=== PATIENT | male | born 1960 | race Caucasian/White ===

== ENCOUNTER 2022-11-23 17:10 | Emergency (ER) | payer BC, SELFPAY ==
[2022-11-23 17:11] VITALS: BP 127/90; PULSE 92; RESP 14; TEMP 36.1; O2SAT 93; BMI 30.2
--- NOTE | 2022-11-23 18:23 | EX.ED.DYSGE1 ---
HPI <KALIA Isabel - Last Filed: 11/23/22 21:05> History of Present Illness Chief Complaint: Abd Pain Narrative Narrative: Patient presenting today with a painful umbilical hernia that he has been unable to reduce since 2 PM this afternoon. He states that he has had this hernia for the past 20 years and has never seen a surgeon regarding it. He states at times it does slip out and he is able to reduce it on his own. He denies a PMH of any chronic health conditions but also states he has poor preventative care and does not have a PCP. He denies any nausea and vomiting. PFSH <KALIA Isabel - Last Filed: 11/23/22 21:05> [facility] Medical History (Updated 11/23/22 @ 21:05 by KALIA Isabel) ACL (anterior cruciate ligament) tear ACL injury tear Hernia Home Medications NK 11/23/22 [History Last Taken Unknown] Allergy/AdvReac Type Severity Reaction Status Date / Time No Known Allergies Allergy Verified 11/23/22 17:11 Social History Smoking Status: Current every day smoker tobacco type: cigars ROS <KALIA Isabel - Last Filed: 11/23/22 21:05> ROS ED Constitutional Constitutional ED: Denies chills, fever(s) or sweats Cardiovascular Cardiovascular: Denies chest pain or palpitations Respiratory/Chest Respiratory/Chest: Denies cough, dyspnea, tachypnea or wheezing Gastrointestinal Gastrointestinal: Reports abdominal pain; Denies constipation, diarrhea, nausea or vomiting Genitourinary Genitourinary ED: Denies dysuria, hematuria or urinary urgency Musculoskeletal Musculoskeletal: Denies arthralgias, back pain, myalgias or neck pain Integumentary Denies abscess, Abrasions or rash Neurologic Neurologic: Denies confusion, dizziness or paresthesias Psychiatric Psychiatric: Denies anxiety, depression, suicidal ideation or suicidal thoughts EXAM <KALIA Isabel - Last Filed: 11/23/22 21:05> Physical Exam Const Vital Signs: 11/23/22 17:11 Temperature 96.9 F L Temperature Source Temporal Pulse Rate 92 Respiratory Rate 14 Blood Pressure 127/90 H Blood Pressure Mean 102 Pulse Ox 93 Oxygen Delivery Method Room Air Positive well nourished, well developed and no apparent distress General Appearance ED: well developed HEENT Reports normocephalic and head/scalp atraumatic Mouth ED: Yes moist mucous membranes normal Eyes PERRL and EOMs intact bilaterally Neck full ROM and supple Chest Wall inspection of chest normal Resp normal respiratory effort and clear to auscultation bilaterally Cardio regular rate and regular rhythm GI GI Narrative: irreducible umbilical hernia. Back/Spine normal ROM and normal to inspection Extremity normal to inspection and full ROM Neuro oriented x3, CN's II-XII intact bilaterally, moves all extremities, no focal motor deficits and no sensory deficits noted Sensorium / Orientation: awake and alert Psych mental status grossly normal and thought process normal Skin no rashes or lesions noted and no wounds <Dr. Bg Nance MD - Last Filed: 11/24/22 00:23> Physical Exam Const Vital Signs: 11/23/22 17:11 Temperature 96.9 F L Temperature Source Temporal Pulse Rate 92 Respiratory Rate 14 Blood Pressure 127/90 H Blood Pressure Mean 102 Pulse Ox 93 Oxygen Delivery Method Room Air MDM <KALIA Isabel - Last Filed: 11/23/22 21:05> [facility] Narrative Medical decision making narrative: Patient presenting today due to a painful umbilical hernia that he is unable to reduce. He has had this for 20 years and has never seen a surgeon for this. Attending ED physician did attempt to reduce this but was unable. Patient was given pain control. Preop labs were obtained. Dr. Gonzalez assessed patient and was able to reduce the hernia. CT of the abdomen and this did show ?Umbilical hernia which contains mesenteric fat and no loops of bowel with a possible area of infarcted mesenteric fat. I spoke to Dr. Gonzalez again felt that as long as patient was not in pain and could tolerate p.o. fluids he could be discharged home. Patient is comfortable with this plan. patient will be discharged home in stable condition as he did tolerate the fluids. I have personally performed a face to face assessment of the patient and have reviewed the VISHNU Note. I performed a substantive portion of the visit including all aspects of the following. My domínguez findings include: History is remarkable for painful nonreducible umbilical hernia. Patient states he had a hernia for 20 years. He states normally is able to push it in. He is presently unable to push the hernia. He is in pain. Is been in pain since 1400. Patient denies vomiting. Exam is patient has an incarcerated umbilical hernia. Medical Decision Making we will obtain preoperative work-up. Spoke with Dr. Favian Gonzalez. He requested CT of abdomen pelvis with IV contrast. Other additions or changes: [None] Lab Data Attestation: I reviewed the patient's lab results. Labs: Laboratory Results - last 24 hr 11/23/22 11/23/22 11/23/22 19:19 19:19 19:19 WBC 11.2 H RBC 5.20 Hgb 15.7 Hct 44.9 MCV 86.3 MCH 30.2 MCHC 35.0 RDW Std Deviation 39.9 RDW Coeff of Mina 12.7 Plt Count 171 MPV 10.8 Immature Gran % (Auto) 0.400 Neut % (Auto) 84.3 H Lymph % (Auto) 9.5 L Stearns % (Auto) 5.1 Eos % (Auto) 0.3 Baso % (Auto) 0.4 Absolute Neuts (auto) 9.4 H Absolute Lymphs (auto) 1.06 Nucleated RBC % 0 Sodium 137 Potassium 3.6 Chloride 104 Carbon Dioxide 25.0 Anion Gap 8 BUN 14 Creatinine 0.82 Estim Creat Clear Calc 109.99 Est GFR (MDRD) Af Amer 123 Est GFR (MDRD) Non-Af 102 BUN/Creatinine Ratio 17.2 Glucose 116 H Calcium 9.4 Blood Type A POSITIVE Antibody Screen NEGATIVE Radiography Diagnostic Testing: Clinical Impression(s) from Imaging Studies Abdomen/Pelvis CT 11/23/22 18:30 IMPRESSION: 1. Mildly dilated fluid-filled loops of small bowel in the upper abdomen with normal caliber bowel distally which may represent a developing obstruction. Transition point is not well visualized. 2. Umbilical hernia which contains mesenteric fat and no loops of bowel. There is a peripherally calcified low-density lesion seen at the level of the rectus muscles within the hernia possibly representing a focus of infarcted mesenteric fat. No other acute abnormalities are identified. Electronically Signed: Power Rivas MD at 20:40 EDT , Chest X-Ray 11/23/22 20:14 IMPRESSION: No radiographic evidence of acute cardiopulmonary disease. Electronically Signed: Power Rivas MD at 20:43 EDT , Imaging also reviewed and interpreted by attending ED physician. EKG Initial EKG: Comments: 85 bpm, normal sinus rhythm, no ST elevation, reviewed and interpreted by attending ED physician <Dr. Bg Nance MD - Last Filed: 11/24/22 00:23> [facility] MDM Narrative Medical decision making narrative: Patient presenting today due to a painful umbilical hernia that he is unable to reduce. He has had this for 20 years and has never seen a surgeon for this. Attending ED physician did attempt to reduce this but was unable. Patient was given pain control. Preop labs were obtained. Dr. Gonzalez assessed patient and was able to reduce the hernia. CT of the abdomen and this did show ?Umbilical hernia which contains mesenteric fat and no loops of bowel with a possible area of infarcted mesenteric fat. I spoke to Dr. Gonzalez again felt that as long as patient was not in pain and could tolerate p.o. fluids he could be discharged home. Patient is comfortable with this plan. patient will be discharged home in stable condition as he did tolerate the fluids. I have personally performed a face to face assessment of the patient and have reviewed the VISHNU Note. I performed a substantive portion of the visit including all aspects of the following. My domínguez findings include: History is remarkable for painful nonreducible umbilical hernia. Patient states he had a hernia for 20 years. He states normally is able to push it in. He is presently unable to push the hernia. He is in pain. Is been in pain since 1400. Patient denies vomiting. Exam is patient has an incarcerated umbilical hernia. Medical Decision Making we will obtain preoperative work-up. Spoke with Dr. Favian Gonzalez. He requested CT of abdomen pelvis with IV contrast. Other additions or changes: The CT was reviewed with Dr. Favian Gonzalez. He requested for patient be reexamined and have p.o. challenge. On reexam his hernia is easily reducible. He has no pain. He did pass p.o. challenge. Patient was instructed to contact Dr. Gonzalez's office in the morning for outpatient surgery. Lab Data Lab results narrative: SigmonWhite count is slightly. The Bolick panel is unremarkable. Labs: Laboratory Results - last 24 hr 11/23/22 11/23/22 11/23/22 19:19 19:19 19:19 WBC 11.2 H RBC 5.20 Hgb 15.7 Hct 44.9 MCV 86.3 MCH 30.2 MCHC 35.0 RDW Std Deviation 39.9 RDW Coeff of Mina 12.7 Plt Count 171 MPV 10.8 Immature Gran % (Auto) 0.400 Neut % (Auto) 84.3 H Lymph % (Auto) 9.5 L Stearns % (Auto) 5.1 Eos % (Auto) 0.3 Baso % (Auto) 0.4 Absolute Neuts (auto) 9.4 H Absolute Lymphs (auto) 1.06 Nucleated RBC % 0 Sodium 137 Potassium 3.6 Chloride 104 Carbon Dioxide 25.0 Anion Gap 8 BUN 14 Creatinine 0.82 Estim Creat Clear Calc 109.99 Est GFR (MDRD) Af Amer 123 Est GFR (MDRD) Non-Af 102 BUN/Creatinine Ratio 17.2 Glucose 116 H Calcium 9.4 Blood Type A POSITIVE Antibody Screen NEGATIVE Radiography Chest X-Ray - ED: Read by ED Physician (Chest x-rays independently reviewed interpreted by me as negative. Cardiac silhouette size normal. Lung parenchyma normal. Perihilar region normal. Osseous structures are unremarkable.) Diagnostic Testing: Clinical Impression(s) from Imaging Studies Abdomen/Pelvis CT 11/23/22 18:30 IMPRESSION: 1. Mildly dilated fluid-filled loops of small bowel in the upper abdomen with normal caliber bowel distally which may represent a developing obstruction. Transition point is not well visualized. 2. Umbilical hernia which contains mesenteric fat and no loops of bowel. There is a peripherally calcified low-density lesion seen at the level of the rectus muscles within the hernia possibly representing a focus of infarcted mesenteric fat. No other acute abnormalities are identified. Electronically Signed: Power Rivas MD at 20:40 EDT , Chest X-Ray 11/23/22 20:14 IMPRESSION: No radiographic evidence of acute cardiopulmonary disease. Electronically Signed: Power Rivas MD at 20:43 EDT , Discharge Plan Triage Chief Complaint: Abd Pain ED Midlevel Provider: Jennifer Thompson ED Provider: Bg Nance Dx/Rx/DC Orders Clinical Impression: Hernia, umbilical Instructions: ED Hernia (Adult) Prescriptions: No Action NK Primary Care Provider: Care Physician,No Primary Referrals: Favian Gonzalez MD [Med Staff - Active Staff] - 3-5 Days Care Physician,No Primary [Primary Care Provider] - Activity Restrictions/Additional Instructions: Please follow-up with the general surgeon return for any worsening of symptoms such as abdominal pain, change in bowel pattern, vomiting, nausea Disposition Disposition: Home, Self Care Discharge Date/Time: 11/23/22 21:36
--- NOTE | 2022-11-23 18:27 | EKG12_ITS ---
Test Reason : DYSRHYTHMIA Blood Pressure : / mmHG Vent. Rate : 085 BPM Atrial Rate : 085 BPM P-R Int : 140 ms QRS Dur : 100 ms QT Int : 386 ms P-R-T Axes : -19 080 034 degrees QTc Int : 459 ms Normal sinus rhythm Normal ECG Confirmed by ROSA GALLAGHER, KILEY ([id number]), deputy editor in chief EVAN DEL REAL ([id number]) on 11/27/2022 10:53:51 AM Referred By: EMILIA Confirmed By:CARRIE LEE MD
--- NOTE | 2022-11-23 18:30 | CT_ITS ---
EXAM: CT ABDOMEN AND PELVIS WITH INTRAVENOUS CONTRAST CLINICAL INDICATION: Incarcerated umbilical hernia TECHNIQUE: Helically acquired images were obtained of the abdomen and pelvis with intravenous contrast. This CT exam was performed using one or more of the following dose reduction techniques: automated exposure control, adjustment of the mA and/or kV according to patient size, and/or use of iterative reconstruction technique. This report was created using [employer] report generation technology. CONTRAST: IV 100mL Isovue-300 COMPARISON: None. FINDINGS: LOWER THORAX: Unremarkable. Lung bases are clear. No cardiomegaly. No significant pericardial effusion. ABDOMEN: LIVER: Unremarkable. Homogeneous. No focal mass. GALLBLADDER AND BILE DUCTS: Unremarkable. No calcified gallstones. No gallbladder distention or wall edema. No intra- or extrahepatic biliary ductal dilation. PANCREAS: Unremarkable. No focal cystic or solid mass. SPLEEN: Unremarkable. Normal size without focal cystic or solid mass. ADRENALS: Unremarkable. No nodules. KIDNEYS AND URETERS: Unremarkable. Normal renal size and position. No hydronephrosis. STOMACH AND BOWEL: There are dilated fluid-filled loops of small bowel proximally with normal caliber bowel loops distally which may represent a developing bowel obstruction. No obvious transition point is identified. No focal inflammatory change. PELVIS: APPENDIX: No evidence of acute appendicitis. BLADDER: Unremarkable. REPRODUCTIVE: Unremarkable as visualized. No mass. ABDOMEN and PELVIS: INTRAPERITONEAL SPACE: Unremarkable. No ascites or other fluid collection. No free air. BONES/JOINTS: Unremarkable. No suspicious lytic or blastic abnormality. SOFT TISSUES: There is a fat-containing umbilical hernia. There is a previously calcified lesion at the level of the rectus abdominis muscles that measures 1.8 x 1.7 x 1.7 cm. This may represent an area of infarcted mesenteric fat. There are no bowel loops within the hernia. VASCULATURE: Unremarkable. Abdominal aorta is non-dilated. LYMPH NODES: Unremarkable. No enlarged lymph nodes. CT/Abdomen/Pelvis W IV Cont ONLY IMPRESSION: 1. Mildly dilated fluid-filled loops of small bowel in the upper abdomen with normal caliber bowel distally which may represent a developing obstruction. Transition point is not well visualized. 2. Umbilical hernia which contains mesenteric fat and no loops of bowel. There is a peripherally calcified low-density lesion seen at the level of the rectus muscles within the hernia possibly representing a focus of infarcted mesenteric fat. No other acute abnormalities are identified. Electronically Signed: Power D. Breckwoldt, MD at 20:40 EDT ,
[2022-11-23] MEDS: Morphine 4 MG/ML Syringe IV (18:46)
--- NOTE | 2022-11-23 19:19 | PCM.HP.STD ---
[facility] - General General Date of Service: 11/23/22 Chief Complaint: Incarcerated umbilical hernia HPI Narrative PATRIZIA GALLOWAY, is a 62 M, with no significant past medical history but a known umbilical hernia, who presents to [facility] with complaints of inability to reduce this hernia. He reports that the hernia protruded somewhere between the hours of 1400 and 1500 this afternoon as he lifted a gate off of a truck at work. He estimates his gait with some 50 pounds and had to be lifted overhead. He states he tried to reduce his hernia for over 30 minutes at home, but when it was larger and firmer than previous, he decided to seek evaluation. He confirms that he did have a bowel movement approximately 1600 this afternoon and has been passing gas. He notes some mild nausea but no vomiting. His /significant other, who accompanies him, reports that he was also slightly sweaty while awaiting evaluation in triage. Mr. Galloway states that he was first diagnosed with a hernia over 20 years ago, but has not received evaluation for treatment. He does admit that it has grown in size, but overall has remained minimally symptomatic. Reports several times previously that his hernia protruded after lifting?particularly?when he was always able to push things back in (he notes that occasionally this did require some effort). Apart from the above, Mr. Galloway recalls a history of significant weight loss of greater than 50 pounds over the last 1 year which he has achieved through intermittent fasting. He also relates a history of a MRSA infection of his left upper extremity that required drainage. [facility] Medical History (Updated 11/23/22 @ 19:[address] Favian Gonzalez MD) ACL (anterior cruciate ligament) tear ACL injury tear Hernia Home Medications NK 11/23/22 [History Last Taken Unknown] Allergy/AdvReac Type Severity Reaction Status Date / Time No Known Allergies Allergy Verified 11/23/22 17:11 Social History Smoking Status: Current every day smoker tobacco type: cigars Vital Signs Vital Signs Vital Signs: 11/23/22 17:11 Temperature 96.9 F L Temperature Source Temporal Pulse Rate 92 Respiratory Rate 14 Blood Pressure 127/90 H Blood Pressure Mean 102 Pulse Ox 93 Oxygen Delivery Method Room Air Weight Weight: 235 lb 10.786 oz Body Mass Index (BMI) 30.2 Physical Exam Const alert, oriented x3 and no apparent distress General Appearance: cooperative and well developed GI GI Narrative: Nondistended, normal habitus, no scars, visibly erythematous periumbilical region with bulging at the umbilicus. Nontender to palpation x4 quadrants. Incarcerated umbilical hernia, but contents are only mildly tender to palpation and are soft. With this tactile exam I proceeded to be primarily (if not solely) fat. Hernia is able to be reduced with gentle continuous traction. The fascial defect is estimated at approximately 3 cm in width. Assessment & Plan Assessment/Plan (1) Incarcerated umbilical hernia: PLAN: Is a 62-year-old male, with minimal past medical history, who presents with incarcerated umbilical hernia. Appeared to be incarcerated fat and the hernia contents remained soft and only mildly tender to palpation so I did attempt reduction and was successful. Fascial defect appears to be approximately 3 cm. Even during our subsequent history, I reexamined patient and found fat already starting to protrude through the defect. Therefore I have informed patient that he is high risk for recurrence. Recommending urgent repair, but patient wishes to avoid admission and repair tomorrow. Therefore, we are obtaining a CT scan to exclude any concerning intraperitoneal findings, but will otherwise plan to follow-up with patient as an outpatient. He will require MRSA PCR given his history. Above impression and plan discussed with ER physician. Charges/Coding Visit Charges Office Visits / Consults: [id number] ED Visit; Moderate Severity
[2022-11-23 19:40] LABS: Absolute Lymphocyte Count 1.06 X10^3/uL (0.83-4.51); Absolute Neutrophil Count 9.4 X10^3/uL (2.0-7.7); Basophil# 0.04 X10^3/uL; Basophil% 0.4 % (0-1); Eosinophil# 0.03 X10^3/uL; Eosinophils% 0.3 % (0-5); Hematocrit 44.9 % (40-54); Hemoglobin 15.7 g/dL (13.0-16.5); Lymphocyte # 1.06 X10^3/ul (0.83-4.51); Lymphocyte % 9.5 % (19-41); Mean Corpuscular Hgb 30.2 pg (27.0-32.0); Mean Corpuscular Volume 86.3 fL (80-94); Mean Platelet Vol. 10.8 fl (6.2-12.0); Monocyte# 0.57 X10^3/uL; Monocyte% 5.1 % (0-10); NRBC Flagged by Analyzer 0 % (0-5); Neutrophil # 9.43 X10^3/uL (2.7-7.7); Neutrophil % 84.3 % (47-70); Platelet Count 171 K/mm3 (150-450); RBC Distribution Width CV 12.7 % (11.6-14.6); RBC Distribution Width SD 39.9 fl (35.1-43.9); White Blood Count 11.2 K/mm3 (4.4-11.0)
[2022-11-23 19:55] LABS: Anion Gap 8 (5-15); BUN 14 mg/dL (7-18); BUN/Creat Ratio 17.2 RATIO (10-20); Calcium,Total 9.4 mg/dL (8.5-10.1); Chloride 104 mmol/L (98-107); Creatinine, Serum 0.82 mg/dL (0.70-1.30); EST Glomerular Filtration Rate 102 mL/min (>60); Est Glom Filt Rate - Afr Amer 123 mL/min (>60); Estimated Creatinine Clearance 109.99 ml/min; Glucose 116 mg/dL (74-106); Potassium 3.6 mmol/L (3.5-5.1); Sodium Level 137 mmol/L (136-145)
--- NOTE | 2022-11-23 20:14 | RAD_ITS ---
EXAM: XR CHEST, 1 VIEW CLINICAL INDICATION: pre-op TECHNIQUE: Frontal view of the chest. This report was created using [employer] report generation technology. COMPARISON: None. FINDINGS: LUNGS AND PLEURAL SPACES: Unremarkable. No consolidation or edema. No pneumothorax. No effusion. HEART: Unremarkable. Cardiac silhouette not enlarged. MEDIASTINUM: Central airways and mediastinal contour are unremarkable. BONES/JOINTS: Unremarkable. SOFT TISSUES: Unremarkable. RAD/Chest 1 View (Portable) IMPRESSION: No radiographic evidence of acute cardiopulmonary disease. Electronically Signed: Power Rivas MD at 20:43 EDT ,
== END 2022-11-23 21:36 | disposition home or self-care (01) ==
PROVIDERS: Physician Assistant; Emergency Provider Emergency Medicine; Visit Provider Emergency Medicine
DX: K42.0 Umbilical hernia with obstruction, without gangrene (principal); F17.290 Nicotine dependence, other tobacco product, uncomplicated
CPT/HCPCS: 71045; 74177; 80048; 85025; 86850; 86900; 86901; 93005; 99283; J7030; Q9967; A4216

== ENCOUNTER 2022-12-01 06:11 | Day surgery (SDC) | payer BC, SELFPAY ==
[2022-12-01] VITALS (7 sets, daily range): BP systolic 117–135; BP diastolic 73–91; PULSE 65–85; RESP 16; TEMP 36.2–36.8; O2SAT 95–100; BMI 29.1
[2022-12-01] MEDS: Lactated Ringers 1,000 ML 15 ML IV ×3 (06:43→11:46)
--- NOTE | 2022-12-01 07:30 | OM_PTH ---
PATIENT: PATRIZIA GALLOWAY LOC: [facility] [place] U#:[id number] AGE/SX: 62/M ROOM: RE12/01/[address]: Dr. Favian Gonzalez MD : 1960 BED: DIS: 12/01/2022 SPEC #: [id number] RECD: 12/01/22 12:50 STATUS: KATLYN DORIS #: [id number] JASON: 12/01/22 07:[address]: Favian Gonzalez DEPT: SURGICAL PATHOLOGY RECD BY: Steph Coronel ENTERED: 12/01/22 13:03 SP TYPE: OMENTUM CATHLEEN DR: No Primary Care Phys Tissues: Omentum, NOS Procedures: Surgery Specimen Level III HEADER OPERATION: Robotic umbilical hernia with mesh, partial omentectomy PRE-OP DIAGNOSIS: Umbilical hernia TISSUE SUBMITTED: Omentum MICROSCOPIC DIAGNOSIS Omentum: A piece of adipose tissue, clinically omentum with focal area of hemorrhage and reactive changes. SJ:patt 12/04/2022 MICROSCOPIC DESCRIPTION Slides are reviewed. GROSS DESCRIPTION Received in fixative is one container labeled with the patient's name and designated omentum. The specimen consists of an irregular piece of adipose tissue measuring 6.0 x 6.0 x 2.5 cm. Sections do not reveal any mass lesion. A focal area of congestion is noted. Allergy And Immunology Specialist sections are submitted in two cassettes. / RACHELLE:patt 12/01/2022 TC:5 CPT: 88280
[2022-12-01] MEDS: Cefazolin 2 GM in 0.9% Normal Saline 100 ML IV (07:40)
--- NOTE | 2022-12-01 07:40 | PCM.HP.BLA ---
History and Physical Date of Admission: 12/01/22 Date of Service:? 11/27/22 MR#: [id number] Acct: [id number] Name:PATRIZIA ESCOTO Rep #: [id number] : 1960 ? ? Provider: Dr. Favian Gonzalez MD Age/Sex:? 62/M ? ? Location: [facility] Status: Signed Intake Vital Signs ? 11/27/2308:06 Height 6 ft 2 in Weight: 232 lb BMI 29.7 BP 137/93 H Blood Pressure Location Rt brachial Position Sitting Respiration 17 Pulse 77 Pulse Source Monitor Temp 97.7 F L Temp Source Temporal Pulse Oximetry (%) 98 Oxygen Delivery Method room air Intake Visit Reasons:?ER VISIT F/U Discuss Umbilical? Hernia Chief Complaint: f/u discuss umbilical hernia Is patient in pain?: No Allergies No Known Allergies Allergy (Verified 11/27/22 09:08) Medications multivitamin 1 tab PO DAILY 11/27/22 [History Confirmed 11/27/22] mupirocin 2 % topical ointment 1 applic topical BID 1 week #15 grams 11/27/22 [Rx Confirmed 11/27/22] PFSH Medical History? ACL (anterior cruciate ligament) tear ACL injury tear Arthritis Hernia History of edema History of MRSA infection Smoker Wears glasses Surgical History? H/O arthroscopy of right knee Family History?(Updated 11/27/22 @ 09:06 by Dianna Mehta) Father Diabetes Hypertension Social History? Smoking Status:? Current some day smoker tobacco type: cigars HPI HPI HPI: Patient is a 62-year-old male who presents for an incarcerated umbilical hernia that I reduced in the ER last week on 11/23/2022.? He reports that he has done well since his emergency room discharge.? He confirms that his bowel movements are back to normal and are regular in frequency.? He has not had any issues with the diet and notes that his nausea was limited to his time before being seen in the emergency room.? He reports today with his . This finding was first noticed by another provider some 20 years ago.? Patient is not able to recall how this occurred, but wonders if it may be related to his time playing competitive softball. Patient has no personal history of smoking.? As previously stated, patient does have a personal history of MRSA to his left upper extremity, remotely.? Pertinent surgical history includes: None ROS General General: Yes weight change; No appetite, fatigue, colon cancer, breast cancer or weakness HEENT HEENT: No difficulty swallowing, eye injury, eye surgery, swollen glands or hoarseness Endo Endocrine: No thyroid disease, diabetes mellitus, thyroid cancer, Hair loss, heat intolerance or cold intolerance Skin Skin: No rash or changing moles Musc Musculoskeletal: Yes arthritis; No back problems, rheumatoid arthritis, gout or joint pain Cardio Cardiovascular: No murmur, pacemaker, heart disease, atrial fibrillation, high blood pressure, heart attack, heart stent, palpitations, shortness of breat with exertion or chest pain Psych Psychiatric: No depression, anxiety or hearing voices Resp Respiratory: No shortness of breath, No sleep apnea, No cough, No COPD, No asthma, No emphysema and No wheezing Gastro Gastrointestinal: No abdominal pain, No nausea or vomiting, No diarrhea, No constipation, No blood in stool, No acid reflux, Yes hemorrhoids, No ulcers, No gallbladder problem and No black,tarry stools Jose Angel Hematologic: No blood thinners, No blood disorders, No bleeding, No anemia and No blood clots Neuro Neurologic: No system reviewed and no additional complaints, except as documented, No as per HPI, No abnormal gait, No abnormal hearing, No abnormal movements, No abnormal speech, No behavioral changes, No burning sensations, No confusion, No convulsions, No disequilibrium, No dizziness, No localized weakness, No frequent falls, No headache(s), No lack of coordination, No loss of vision, No memory loss, No numbness, No other visual disturbances, No radicular pain, No restless legs, No sensory deficit, No syncope, No tingling, No tremor(s), No weakness and No other Exam Const General: cooperative, comfortable and no acute distress Resp Effort & Inspection: normal respiratory effort GI Other: Hirsute, nondistended, mild purpling of the umbilical hernia, but soft and nontender with palpation.? There are fat contents in the hernia currently and these are soft and appear reducible, however, I will leave this in place as a placeholder to exclude other visceral contents Assessment and Plan Assessment and Plan (1) Hernia, umbilical: ?Status:?Chronic ?Comment: This is a 62-year-old male, with recently incarcerated umbilical hernia, who presents for post ER follow-up and preoperative discussions.? I have sought urgent minimally invasive repair as I believe Mr. Humphrey is at significant risk for recurrence of his original condition.? I shared with Mr. Humphrey and his significant other his CT imaging from 11/23/2022.? I shared that this likely represented that his hernia had contained bowel and that this was a focus of a developing small bowel obstruction until its reduction.? I also shared with him that this is a 3 cm hernia defect.? On exam, Mr. Humphrey has evidence of persistent fat within his umbilical hernia, but this is sliding and nontender.? I left this in place as a means of excluding any additional viscera.? I described the operation intended as a robotic transabdominal preperitoneal closure of his umbilical hernia.? We revisited expectations for postoperative lifting restrictions and activity recommendations.? Given that we are planning this operation rather urgently, I have suggested that we assume he is a MRSA carrier (given his past history of a MRSA infection) and treat him empirically with mupirocin and Hibiclens.? Mr. Humphrey expresses understanding of this information and neither he nor his significant other have any further questions. ?Plan: ? Operative repair of umbilical hernia via a robot-assisted Kisha approach planned for 12/01/2022.? Patient recommended no lifting greater than 10 pounds for 5 weeks following the operation. I have examined the patient and the H&P has been reviewed. There are no clinical changes since date of exam. Neither patient nor his spouse have any questions. Procedure expectations and postoperative expectations/lifting restrictions were reviewed. Proceed to the operating room for robot-assisted umbilical hernia repair with mesh as discussed above.
[2022-12-01] MEDS: Bupivacaine 0.25% 30 ML Vial ×2 (08:11)
[2022-12-01] MEDS: 0.9% Normal Saline (Pres. free 10 ML Vial (08:11)
[2022-12-01] MEDS: BUPIVACAINE LIPOSOME/PF 20 ML VIAL OPERA.SITE (08:11)
--- NOTE | 2022-12-01 12:05 | OP.PCM_ITS ---
Report of Operation Date of Procedure: 12/01/22 Pre-Operative Diagnosis: Chronically incarcerated (fat incarcerated) umbilical hernia Post-Operative Diagnosis: Chronically incarcerated (fat incarcerated) umbilical hernia (4 cm defect) Surgery/Procedure Performed:: 1. Robot-assisted umbilical hernia repair with mesh (transabdominal preperitoneal approach) 2. Transversus abdominis plane block 3. Partial omentectomy Description of Surgical Findings:: ? Large umbilical hernia with chronically incarcerated fat and smaller defect just cephalad by less than half a centimeter also containing fat ? Large peritoneal opening with ischemic omentum Surgeon: Favian Gonzalez architectural examiner: Mally Wilkins Type of Anesthesia: General/Supplemental Anesthesiologist: Roque Shay Special Medications: 60 mL bupivacaine mixed with 20 mL Exparel and 20 mL injectable sterile saline Specimen's removed: Incarcerated omentum Drains: None Estimated Blood Loss (mL): 20 Description of Procedure: After appropriate identification in the preoperative holding area, the patient was brought to the operating room suite where he was positioned supine the operating table. Preoperative antibiotics were administered. Patient was then induced with a general anesthetic. He was positioned with a bump under his left side and with a slight break of the bed to increase exposure operatively. Patient's abdomen was prepped and draped in the usual sterile fashion. A formal timeout followed to confirm patient and procedure. Procedure was begun with a Veress entry at Gayle's point, however, I did not feel like I could reliably determine the depth of the needle as the patient appeared to have a greater degree of preperitoneal adipose than anticipated so I transitioned to open cutdown. After bluntly the muscle fibers along their orientation and incising the peritoneum, a port was placed and laparoscopic investigation revealed no inadvertent injury to the viscera below. Two additional 8 mm robotic trocars were placed along the abdominal wall laterally taking care to avoid the bony prominences of the costal margin and the ASIS. A transversus abdominis plane block was created with a mixture of 60 mL bupivacaine, 20 mL Exparel, and 20 mL injectable saline under laparoscopic vision (a total of 70 mL was injected) as these ports were placed. The robot was then brought in and docked in standard fashion. Robotically a peritoneal flap was raised approximately 5 cm medial from my trochars and carried this away towards the contralateral abdominal wall. Great care was taken to lower the peritoneum off of the posterior rectus sheath and avoid any rents in the peritoneal flap. Perforating vessels were sealed with monopolar or bipolar energy to maintain hemostasis as this flap dissection proceeded. I then addressed the hernia directly by opening the scar tissue about the hernia sac and carefully applied manual traction downward until the hernia was fully reduced. In doing so I uncovered a second, much smaller defect less than 1cm cephalad to the index defect. There was a large amount of incarcerated fat from the omentum in both defects. After this fat was fully reduced from these hernia defects I found that there was a significant amount of adipose in the preperitoneal space and that this would weight the peritoneum in a way that would make peritoneal closure difficult if not impossible. I attempted to pull the omentum back into the abdominal cavity through the peritoneum, but found it densely scarred in at the level of the peritoneum. I used the monopolar scissors to dissect out this incarcerated omentum and reduce it back towards the peritoneum. Still, there was a significant amount of adipose stuck into this defect. I then transitioned to anterior abdominal wall where I measured the patient's fascial defects. In aggregate (combining the known defect and the smaller defect located cephalad) the defect length was 4 cm x 2.5 cm wide. Wanting to achieve at least 4 cm of overlap with our mesh, I requested a ProGrip mesh was 12 cm x 8 cm. The hernia defects were then closed with a #1 stratafix suture by running the fascial defect closed and then running the suture back upon itself?incorporating some of the overlying umbilical skin in the closure as I did (also ensuring that there was no buttonholing of the skin). Next, our 8 x 12 ProGrip mesh was introduced into the peritoneum and positioned against the anterior abdominal wall so that the midpoint was located directly over the fascial closure. It was then pressed into place. Still, I found that the mesh was not completely coapting with the anterior abdominal wall so I chose to tack the mesh at the area of the defect closure using a 3-0 Vicryl suture and then in the 2 corners closest to me. A 3-0 V-Loc suture was then used to close the peritoneal flap longitudinally in a running fashion. As I attempted to fully reduce the omentum from the preperitoneal space, I found that there was still a significant amount of scarred, infarcted fat in that location so I made the decision to amputate it where it was using our monopolar scissor. With the fat from the peritoneum, I found it to be completely devascularized from the underlying omentum, so I requested a Endo Catch bag for removal from the abdomen. In the meantime I used a 3-0 Vicryl suture to close the peritoneal void in a running fashion. Then the amputated, infarcted omentum was placed into an Endo Catch bag and delivered from the peritoneum via our left upper quadrant port. All our remaining needles were also delivered from the peritoneum under direct camera visualization and Case counts were correct x2, before the robot was then undocked and the trocars were removed. Given, the open approach to our left upper quadrant port site, I chose to close this at the fascia with a 0 Vicryl suture in a [id number] fashion. Additional local anesthetic was instilled and the port sites were closed with interrupted 4-0 Monocryl in subcuticular fashion. Steri-Strips and OpSite dressings were applied. Patient was transferred to PACU for ongoing care. Grafts/Implants Used: ProGrip mesh, lot [id number], reference number [id number] Complications None Admit VTE Documentation VTE Mechan Device Prophylaxis: SCD's
--- NOTE | 2022-12-01 12:10 | DCINST_ITS ---
Discharge Instructions Diet Discharge Diet: No restrictions Activity Discharge Activity: May Not Drive (While taking narcotic pain medication) and May Shower May shower in (days): 2 Ice area for (Minutes): 20 Lifting Restrictions: No lifting greater than 10 pounds for the next 5 weeks Dressing / Incision Call your doctor if your incision/area has: Continuous Slow Oozing, Increased Pain/ Swelling, Increased Redness, Foul Smelling Discharge and Swelling at the incision site Call your doctor if you observe: Fever of 101 or Higher and Inability to urinate Change Dressing in: 2 days (Please leave Steri-Strips intact until they fall off spontaneously or are taken off at your follow-up visit) Remove Dressing in: 2 days (Please leave Steri-Strips intact until they fall off spontaneously or are taken off at your follow-up visit) Cleanse incision/area with: Soap & Water and Keep Dressing Clean & Dry Follow Up Care Please Follow Up With: Favian Gonzalez MD When: 1 week postop Test Results: Test results from this visit will be discussed in further detail at your follow- up appointment, if applicable. Discharge Plan Admission Primary Reason for Your Visit: Umbilical hernia repair Attending Provider: Favian Gonzalez Primary Care Provider: Danyell Davenport Primary Discharge Orders/Prescriptions Prescriptions: New oxycodone 5 mg tablet 5 mg PO Q6H PRN (Reason: pain) 5 Days Qty: 20 0RF Continued mupirocin 2 % ointment 1 applic topical BID 7 Days Qty: 15 0RF Rx Instructions: Apply with q-tip to bilateral nares two times a day x 1 week. multivitamin Tablet 1 tab PO DAILY Referrals / Follow Up: Care PhysicianDanyell Primary [Primary Care Provider] - Disposition Disposition (needs filled in before D/C Order can be placed): Home, Self Care
== END 2022-12-01 15:19 | disposition home or self-care (01) ==
LOC: SDC 06:11 → AC 06:12
PROVIDERS: Referring Provider Surgery; Visit Provider Surgery
PROC: (CPT 49594; principal; 2022-12-01 07:10)
DX: K42.0 Umbilical hernia with obstruction, without gangrene (principal); F17.290 Nicotine dependence, other tobacco product, uncomplicated
CPT/HCPCS: 49594; 49329; S2900; 00830; 88304; 88305; J7120; J2405; J3490